=== PATIENT | female | born 1970 | race Caucasian/White ===

== ENCOUNTER 2023-08-08 21:08 | Emergency (ER) | payer MEDICAID ==
[~2023-08-08] VITALS: Ht 152.4 cm; Wt 68.2 kg
[2023-08-08] MEDS ORDERED: CEPH250C PO (23:11)
[2023-08-08] MEDS ORDERED: ACET500T58 PO (23:11)
[2023-08-08 23:35] VITALS: BP 128/66; PULSE 72; RESP 18; TEMP 98.4; O2SAT 98
== END 2023-08-08 23:59 | disposition home or self-care (01) ==
LOC: ER 21:08
DX: S61.012A Laceration without foreign body of left thumb without damage to nail, initial encounter (principal); W26.8XXA Contact with other sharp object(s), not elsewhere classified, initial encounter; Y93.89 Activity, other specified; Y92.89 Other specified places as the place of occurrence of the external cause; Y99.8 Other external cause status
CPT/HCPCS: 12001